=== PATIENT | male | born 1990 | race Caucasian/White ===

== ENCOUNTER 2021-03-10 14:49 | Inpatient (IN) | payer OTHER, SELFPAY ==
[2021-03-10 16:13] VITALS: BP 91/58; PULSE 64; TEMP 36.2; O2SAT 100
--- NOTE | 2021-03-10 16:59 | PC.ADMIT ---
Nursing admission note: 30 year old male Dx: Schizoaffective disorder. Referred for admission by N/CARE team following intentional overdose of Klonopin. Signed conditional voluntary for admission. A+O x3, cooperative with admission process, engages although groggy . Patient presents as slowed, delays in responses however relevant in content. Affect is depressed, sad. Dressed in hospital attire. Speech is slurred. Denies SI/HI plan or intent at this time. Denies perceptual disturbances, no overt psychosis or expressed delusions. Per crisis eval patient took overdose following a romantic relationship disappointment . Medical history includes Fibromyalgia and dental pain. NKDA. Reports a back tooth has snapped off. COVID negative. Endorses regular cannabis use, denies other drug or alcohol use. Tox screen positive for cannabis and Benzo. Currently without therapist however receives psychiatric service with Dr. Feldman, [facility]. Prior history of inpatient admissions, [facility] resp[facility] 07/2019 - 05/2020. Denies legal entanglements at this time. Patient placed on 15 minute safety checks, was oriented to unit, signed RED. See nursing assessment/crisis evaluation for further details.
[2021-03-10 18:00] VITALS: BP 99/56; PULSE 72; TEMP 36.6; O2SAT 100
--- NOTE | 2021-03-10 20:38 | HO.HSGERICON ---
History of Present Illness Data of Consult Service Date: 03/10/21 Primary Care Provider: Unknown Physician HPI Reason for consult: Admission H&P This is a 30-year-old male with past medical history of schizoaffective disorder admitted to [facility] following intentional overdose of chronic pain. Patient denies any past medical history. Denies any acute complaints including no headache, change in vision, no chest pain, no shortness of breath, no abdominal pain nausea or vomiting, no diarrhea constipation, no urinary symptoms and no lower extremity edema. Vitals reviewed stable Review of Systems Review of Systems: Yes all other systems are reviewed and are negative [facility] Medical History (Updated 03/10/21 @ 20:42 by Gilma Clemente MD) Schizoaffective disorder Family History Mother Depression Social History Household Members: None Housing: Apartment Do you presently have visiting nurse or other home services: No Unable to assess alcohol history related to: Unknown Patient Tobacco Use Status: Current everyday Tobacco user Tobacco use type: Cigarette Smoked in Last 30 Days: Yes e-Cigarette/Vaping Use: Former Use Patient Interested in Nicotine Replacement: Yes Patient Given Instructions on How to Stop Smoking: Yes Date Education Initiated: 03/10/21 Second Hand Smoke Exposure: No Use of substances other than those prescribed or required for medical reasons: Yes Substance Use Type: Marijuana Substance Use Frequency: Daily Last Used Substance: Hours (ago) Last Used Substance Other:: Klonopin/Cannabis Currently Displaying Signs/Symptoms of Drug Intoxication Withdrawal: No Any prior treatment program specific to substance use: No Spiritual Healthcare Practices: Unknown Scientologist Healthcare Practices: Unknown Cultural Healthcare Practices: Unknown Advance Directives: No Advance Directives Information Provided: Yes Advance Directives on File: No Do you have thoughts of harming others: None Do you have a plan to hurt others: No Plan How much weight loss: 2-13 pounds Poor oral hygiene: Yes (Needs to follow up with dentist, eval reflects broken tooth) Meds Allergies Allergy/AdvReac Type Severity Reaction Status Date / Time No Known Allergies Allergy Unverified 03/20/20 15:53 Active Medications: Current Medications Generic Name Dose Route Start Last Admin Trade Name Freq PRN Reason Stop Dose Admin Acetaminophen 650 mg 03/10/21 15:03 Acetaminophen 325 Mg Tablet PO Q6H PRN Headache/Pain Mild Scale (1-3) Al Hydroxide/Mg Hydroxide 30 ml 03/10/21 15:03 Magnesium Hydrox/Alum Hydrox 30 Ml Oral.Susp PO Q6H PRN Heartburn/Nausea Gabapentin 100 mg 03/10/21 21:00 Gabapentin 100 Mg Capsule PO TID BIJU Hydroxyzine HCl 50 mg 03/10/21 15:03 Hydroxyzine Hcl 25 Mg Tablet PO Q6H PRN Anxiety Magnesium Hydroxide 30 ml 03/10/21 15:03 Milk Of Magnesia 30 Ml Oral.Susp PO DAILY PRN Constipation Nicotine 14 mg 03/10/21 15:09 Nicotine 14 Mg Patch.Td24 TRANSDERMA DAILY PRN nicotine cravings Nicotine Polacrilex 2 mg 03/10/21 15:08 Nicotine Polacrilex 2 Mg Gum BUCCAL Q2H PRN Nicotine Cravings Trazodone HCl 50 mg 03/10/21 15:03 Trazodone Hcl 50 Mg Tablet PO BEDTIME PRN Insomnia Assessment and Plan (1) Suicide attempt: Status: Acute 30-year-old male with past medical history of schizoaffective disorder admitted to [facility] following an intentional overdose of Klonopin Patient hemodynamically stable with no acute medical complaints Suicide attempt/depression - management for U Physical Exam Vital Signs: Last Vital Signs Temp 97.2 F 03/10/21 16:13 Pulse 64 03/10/21 16:13 BP 91/58 L 03/10/21 16:13 Pulse Ox 100 03/10/21 16:13 Const General: cooperative and no acute distress Orientation/consciousness: patient oriented x3 Eyes General: appearance normal, both eyes and all related structures Pupils: Equal, round and reactive pupils present Resp Effort & Inspection: normal respiratory effort and able to speak in complete sentences Auscultation: clear to auscultation bilaterally Cardio Rate: regular rate Rhythm: regular rhythm GI Palpation (GI): Soft to palpation Auscultation: normal bowel sounds Skin General skin exam: no rashes or lesions noted Neuro General: patient oriented x3 Cranial nerves: Yes Equal, round and reactive pupils present Cognition (Neuro): normal cognition Extrem General: Yes normal to inspection and Yes no pedal edema
[2021-03-10] MEDS: Gabapentin 100 MG CAPSULE PO (21:17)
[2021-03-10 21:30] VITALS: BP 97/60; PULSE 63
[2021-03-11 07:38] LABS: Estimated Average Glucose 97 mg/dL
[2021-03-11 07:41] LABS: Cholesterol 113 mg/dL; HDL Cholesterol 42 mg/dL; LDL Cholesterol Calculated 58 mg/dl; Triglycerides 65 mg/dL
[2021-03-11 08:02] LABS: Thyroid Stimulating Hormone 0.51 uIU/mL (0.32-4.0)
[2021-03-11 08:27] LABS: Folate 8.2 ng/mL (> or = 4.0); Vitamin B12 301 pg/mL (200-900)
[2021-03-11 09:30] VITALS: BP 95/54; PULSE 75; RESP 12; TEMP 36.9; O2SAT 98
[2021-03-11] MEDS: Gabapentin 100 MG CAPSULE PO ×3 (09:41→20:04)
[2021-03-11] MEDS: Nicotine 14 MG PATCH.TD24 TRANSDERMA (14:06)
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
[2021-03-11] MEDS: Nicotine Polacrilex 2 MG GUM BUCCAL ×2 (15:07→17:41)
--- NOTE | 2021-03-11 16:47 | MHC.CLN ---
NUTRITION PATIENT REPORTS HEIGHT=5'8 , AHUWYP=[id number]#. BMI=19.5, 83% OF IBW. REPORTS THAT EATS WHEN HUNGRY. DOES NOT WANT NUTRITIONAL SUPPLEMENT.
[2021-03-11 16:58] VITALS: BMI 19.4
[2021-03-11] MEDS: QUEtiapine Fumarate 50 MG TABLET PO ×2 (17:41→20:04)
[2021-03-11 18:00] VITALS: BP 106/60; PULSE 70; TEMP 37.1; O2SAT 99
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
[2021-03-12] MEDS: Gabapentin 100 MG CAPSULE PO ×3 (10:17→20:21)
[2021-03-12] MEDS: ARIPiprazole 30 MG TABLET PO (10:17)
[2021-03-12] MEDS: QUEtiapine Fumarate 50 MG TABLET PO ×3 (10:17→20:22)
[2021-03-12 10:22] VITALS: BP 124/75; PULSE 69; RESP 18; TEMP 36.7; O2SAT 100
[2021-03-12] MEDS: Nicotine Polacrilex 2 MG GUM BUCCAL ×2 (11:42→14:04)
[2021-03-12] MEDS: Nicotine 14 MG PATCH.TD24 TRANSDERMA (11:42)
[2021-03-12 18:00] VITALS: BP 127/76; PULSE 96; RESP 18; TEMP 36.3; O2SAT 99
[2021-03-13] MEDS: traZODone HCL 50 MG TABLET PO ×2 (00:18→20:23)
[2021-03-13 06:00] VITALS: BP 121/67; PULSE 96; RESP 18; TEMP 36.7; O2SAT 98
[2021-03-13] MEDS: Nicotine Polacrilex 2 MG GUM BUCCAL ×2 (07:34→14:32)
[2021-03-13] MEDS: Nicotine 14 MG PATCH.TD24 TRANSDERMA (07:34)
[2021-03-13] MEDS: QUEtiapine Fumarate 50 MG TABLET PO ×2 (09:09→20:24)
[2021-03-13] MEDS: Gabapentin 100 MG CAPSULE PO ×3 (09:09→20:24)
[2021-03-13] MEDS: ARIPiprazole 30 MG TABLET PO (09:09)
--- NOTE | 2021-03-13 13:50 | MHC.CLN ---
F/U APPEARS TO BE EATING WELL. NO NEW NUTRITION INTERVENTIONS AT THIS TIME.
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
[2021-03-13] MEDS: LORazepam 0.5 MG TABLET PO ×2 (14:21→20:23)
[2021-03-13 18:00] VITALS: BP 123/71; PULSE 96; TEMP 36.5; O2SAT 96
[2021-03-14] MEDS: LORazepam 0.5 MG TABLET PO ×3 (02:33→20:36)
[2021-03-14] MEDS: Nicotine Polacrilex 2 MG GUM BUCCAL ×4 (02:37→20:35)
[2021-03-14 09:00] VITALS: BP 108/69; PULSE 76; RESP 16; TEMP 36.8; O2SAT 100
[2021-03-14] MEDS: ARIPiprazole 30 MG TABLET PO (09:59)
[2021-03-14] MEDS: Gabapentin 100 MG CAPSULE PO ×3 (09:59→20:36)
[2021-03-14] MEDS: QUEtiapine Fumarate 50 MG TABLET PO ×3 (09:59→20:36)
[2021-03-14] MEDS: Nicotine 14 MG PATCH.TD24 TRANSDERMA (11:01)
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
[2021-03-14] MEDS: Nicotine 21 MG PATCH.TD24 TRANSDERMA (12:46)
[2021-03-14 20:50] VITALS: BP 121/82; PULSE 122; RESP 18; TEMP 36.8; O2SAT 99
[2021-03-15 07:45] VITALS: BP 109/75; PULSE 78; RESP 16; TEMP 36.5; O2SAT 99
[2021-03-15] MEDS: LORazepam 0.5 MG TABLET PO ×2 (07:50→19:54)
[2021-03-15] MEDS: Gabapentin 100 MG CAPSULE PO ×2 (07:50→23:01)
[2021-03-15] MEDS: ARIPiprazole 30 MG TABLET PO (07:50)
[2021-03-15] MEDS: QUEtiapine Fumarate 50 MG TABLET PO ×3 (07:50→23:01)
[2021-03-15] MEDS: Nicotine 21 MG PATCH.TD24 TRANSDERMA (07:51)
[2021-03-15] MEDS: Nicotine Polacrilex 2 MG GUM BUCCAL (07:55)
[2021-03-15 18:00] VITALS: BP 133/91; PULSE 120; TEMP 36.8; O2SAT 96
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
[2021-03-15 23:13] VITALS: BP 116/72; PULSE 120
[2021-03-15] MEDS: LORazepam 1 MG TABLET PO (23:33)
[2021-03-16] MEDS: hydrOXYzine HCL 25 MG TABLET 50 MG PO (01:54)
[2021-03-16] MEDS: LORazepam 0.5 MG TABLET PO ×2 (01:54→15:17)
[2021-03-16] MEDS: Nicotine 21 MG PATCH.TD24 TRANSDERMA (09:11)
[2021-03-16] MEDS: ARIPiprazole 30 MG TABLET PO (09:11)
[2021-03-16] MEDS: QUEtiapine Fumarate 50 MG TABLET PO ×3 (09:11→20:25)
[2021-03-16] MEDS: Gabapentin 100 MG CAPSULE PO (09:11)
[2021-03-16 09:18] VITALS: BP 117/71; PULSE 97; RESP 18; TEMP 36.6; O2SAT 99
[2021-03-16] MEDS: Gabapentin 100 MG CAPSULE 200 MG PO (10:30)
[2021-03-16] MEDS: Nicotine Polacrilex 2 MG GUM BUCCAL ×3 (10:57→22:17)
--- NOTE | 2021-03-16 14:09 | MHC.CLN ---
F/U CHART REVIEWED. NO NOTED/REPORTED CONCERNS WITH CURRENT DIET. RD TO FOLLOW UP WEEKLY.
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
[2021-03-16] MEDS: Gabapentin 300 MG CAPSULE PO ×2 (16:44→20:25)
[2021-03-16] MEDS: traZODone HCL 50 MG TABLET PO (20:28)
[2021-03-16 21:25] VITALS: BP 120/73; PULSE 112; RESP 16; TEMP 36.7; O2SAT 97
[2021-03-17 07:50] VITALS: BP 118/70; PULSE 82; RESP 18; TEMP 36.6; O2SAT 100
[2021-03-17] MEDS: ARIPiprazole 30 MG TABLET PO (08:01)
[2021-03-17] MEDS: Nicotine 21 MG PATCH.TD24 TRANSDERMA (08:01)
[2021-03-17] MEDS: QUEtiapine Fumarate 50 MG TABLET PO ×2 (08:01→20:21)
[2021-03-17] MEDS: LORazepam 0.5 MG TABLET PO ×2 (08:01→17:06)
[2021-03-17] MEDS: Gabapentin 300 MG CAPSULE PO ×3 (08:01→20:21)
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
[2021-03-17] MEDS: Nicotine Polacrilex 2 MG GUM BUCCAL ×2 (11:55→17:06)
[2021-03-17 20:00] VITALS: BP 108/57; PULSE 97; RESP 18; TEMP 36.2; O2SAT 98
[2021-03-17] MEDS: traZODone HCL 50 MG TABLET PO (20:21)
[2021-03-18] MEDS: Nicotine Polacrilex 2 MG GUM BUCCAL (02:22)
[2021-03-18 08:25] VITALS: BP 117/61; PULSE 88; RESP 16; TEMP 36.7; O2SAT 98
[2021-03-18] MEDS: Gabapentin 300 MG CAPSULE PO (08:30)
[2021-03-18] MEDS: ARIPiprazole 30 MG TABLET PO (08:30)
[2021-03-18] MEDS: QUEtiapine Fumarate 50 MG TABLET PO (08:30)
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
--- NOTE | 2021-03-18 12:24 | PC.NURSE ---
Patient is alert, fully oriented, pleasant and cooperative with discharge process. Mauricio denies thoughts of harming himself or others. He denies auditory and visual hallucinations. He verbalizes understanding of discharge medications and verbalizes intention to comply with same. He verbalizes understanding of upcoming appointments and intends to attend them. He denies current physical complaint.
== END 2021-03-18 12:15 | disposition home or self-care (01) | DRG 885 ==
PROVIDERS: Admitting Provider Psychiatry & Neurology Psychiatry; Visit Provider Social Worker
DX: F25.9 Schizoaffective disorder, unspecified (principal); R45.851 Suicidal ideations; F17.210 Nicotine dependence, cigarettes, uncomplicated; Z71.6 Tobacco abuse counseling; Z91.5 Personal history of self-harm; Z79.899 Other long term (current) drug therapy
CPT/HCPCS: 36415; 80061; 82607; 82746; 83036; 84443; 99232